=== PATIENT | female | born 1960 | race Caucasian/White ===

== ENCOUNTER 2019-08-24 13:26 | Emergency (ER) | payer BC, OTHER ==
[~2019-08-24] VITALS: Ht 172.7 cm; Wt 80.0 kg
[2019-08-24] MEDS ORDERED: LIDOcaine 5% patch TP ONE (14:45)
[2019-08-24] MEDS ORDERED: HYDROcodone/acetaminophen 5mg/325mg tablet PO ONE (14:45)
[2019-08-24] MEDS ORDERED: CYCL-1 PO (15:00)
[2019-08-24] MEDS ORDERED: HYDR-3965 PO (15:00)
[2019-08-24 15:15] VITALS: BP 145/86
== END 2019-08-24 15:16 | disposition home or self-care (01) ==
LOC: ER 13:26
DX: M54.5 Low back pain (principal); G89.29 Other chronic pain; R20.2 Paresthesia of skin; Z98.890 Other specified postprocedural states; Z88.2 Allergy status to sulfonamides; Z79.899 Other long term (current) drug therapy
CPT/HCPCS: 99283

== ENCOUNTER 2020-02-04 06:38 | Day surgery (SDC) | payer OTHER, SELFPAY ==
[~2020-02-04] VITALS: Ht 165.1 cm; Wt 82.0 kg
[2020-02-04] VITALS (7 sets, daily range): BP systolic 110–156; BP diastolic 55–77
[~2020-02-04 06:38] MED LIST: CYCL-1 PO
[2020-02-04] MEDS ORDERED: lisinopril PO (07:16)
[2020-02-04] MEDS ORDERED: EFF25T PO (07:16)
[2020-02-04] MEDS ORDERED: Gabapentin PO (07:16)
[2020-02-04] MEDS ORDERED: EST1T PO (07:16)
[2020-02-04] MEDS ORDERED: LIDOcaine 1%/PF 5ML 10 MG/ML VIAL ONE (08:30)
[2020-02-04] MEDS ORDERED: midazolam 2 mg/2 ml injection ONE (08:30)
[2020-02-04] MEDS ORDERED: heparin sodium, porcine/PF 100unit/ml 5ML syringe ONE (08:30)
[2020-02-04] MEDS ORDERED: fentaNYL/PF 50MCG/1 ML 2ML syringe ONE (08:31)
[2020-02-04] MEDS ORDERED: iohexol 300 MG/1 ML 50ml polymer ONE (08:31)
[2020-02-04] MEDS ORDERED: tPA-cathflo 2 MG/2 ml IV flush ONE (08:52)
[2020-02-04] MEDS ORDERED: tPA-cathflo 2mg/2ml IV flush 2 MG in normal saline 100ml IV soln 100 ML ICATH SCH (08:59)
== END 2020-02-04 11:55 | disposition home or self-care (01) ==
LOC: MED 3N 06:38 → U 06:38
PROVIDERS: ATTEND Radiology Diagnostic Radiology
DX: T82.898A Other specified complication of vascular prosthetic devices, implants and grafts, initial encounter (principal); Z88.8 Allergy status to other drugs, medicaments and biological substances; Y83.8 Other surgical procedures as the cause of abnormal reaction of the patient, or of later complication, without mention of misadventure at the time of the procedure; Y92.89 Other specified places as the place of occurrence of the external cause
CPT/HCPCS: 36593; 36598; J1642; J2250; J2997; J3010; Q9967; 76937

== ENCOUNTER 2021-12-28 16:29 | Emergency (ER) | payer OTHER, SELFPAY ==
[~2021-12-28] VITALS: Ht 172.7 cm; Wt 76.8 kg
[~2021-12-28 16:29] MED LIST changes: -CYCL-1 PO; +EST1T PO; +Gabapentin PO; +VENL25TA48 PO; +lisinopril PO
[2021-12-28] MEDS ORDERED: normal saline 1000ml 1,000 ML IV ONE (17:30)
[2021-12-28 19:00] VITALS: BP 182/72
[2021-12-28 19:01] LABS: BASOPHILS # (AUTO) 0.1 X10'3 (0-0.2); BASOPHILS % (AUTO) 0.6 % (0-1); EOSINOPHILS # (AUTO) 0.1 X10'3 (0-0.9); EOSINOPHILS % (AUTO) 1.4 % (0-6); HEMATOCRIT 44.5 % (35.0-45.0); HEMOGLOBIN 14.5 g/dl (12.0-16.0); LYMPHOCYTES # (AUTO) 2.1 X10'3 (1.1-4.8); LYMPHOCYTES % (AUTO) 22.3 % (21-51); MEAN CORPUSCULAR HGB CONC 32.6 g/dL (33.0-36.5); MEAN CORPUSCULAR VOLUME 92.2 FL (78-98); MEAN PLATELET VOLUME 7.2 FL (7.4-10.4); MONOCYTES # (AUTO) 0.8 X10'3 (0-0.9); NEUTROPHILS # (AUTO) 6.2 X10'3 (1.8-7.7); NEUTROPHILS % (AUTO) 66.7 % (42-75); PLATELET COUNT 334 X10'3 (140-440); RED BLOOD COUNT 4.83 X10'6 (4.20-5.60); RED CELL DISTRIBUTION WIDTH 14.4 % (11.5-14.5); WHITE BLOOD COUNT 9.3 X10'3 (4.5-11.0)
[2021-12-28 19:26] LABS: ALANINE AMINOTRANSFERASE 41 U/L (12-78); ALBUMIN 4.1 G/DL (3.4-5.0); ALKALINE PHOSPHATASE 60 IU/L (46-116); ANION GAP 14 (8-16); ASPARTATE AMINO TRANSFERASE 28 U/L (10-37); BILIRUBIN,TOTAL 0.4 MG/DL (0.1-1.0); BLOOD UREA NITROGEN 18 MG/DL (7-18); BUN/CREATININE RATIO 19.6 (6.6-38.0); CALCIUM 9.6 MG/DL (8.5-10.1); CHLORIDE 96 MMOL/L (99-107); CREATININE 0.92 MG/DL (0.40-0.90); GLUCOSE 104 MG/DL (70-104); POTASSIUM 4.1 MMOL/L (3.5-5.1); SODIUM 134 MMOL/L (135-145); TOTAL CARBON DIOXIDE 24.2 MMOL/L (24-32); TOTAL PROTEIN 8.2 G/DL (6.4-8.2); eGFR 62 ML/MIN
[2021-12-28 20:18] LABS: LIPASE < 50 U/L (73-393); MAGNESIUM 2.8 MG/DL (1.5-2.4)
--- NOTE | 2021-12-28 21:35 | NUR ---
PER REGISTRATION. PT LEFT
== END 2021-12-28 22:19 | disposition left against medical advice (07) ==
LOC: ER 16:30
DX: R11.0 Nausea (principal); R10.9 Unspecified abdominal pain; Z53.21 Procedure and treatment not carried out due to patient leaving prior to being seen by health care provider
CPT/HCPCS: 36415; 74022; 80053; 83605; 83690; 83735; 84484; 85025